=== PATIENT | female | born 1980 | race Caucasian/White ===

== ENCOUNTER → 2020-04-26 | Outpatient (CLI) | payer OTHER ==
[~2020-04-26] MED LIST: ZOFRAN4 MG PO
== END ==
LOC: HEART 5 15:51
DX: R06.02 Shortness of breath (principal); Z86.16 Personal history of COVID-19; F17.210 Nicotine dependence, cigarettes, uncomplicated
CPT/HCPCS: 94010

== ENCOUNTER 2021-10-27 19:00 | Emergency (ER) | payer OTHER ==
[2021-10-27 20:57] LABS: HEMOGLOBIN 15.9 gm/dl (12.3-15.3); RED BLOOD COUNT 5.48 M/UL (4.00-5.10); WHITE BLOOD COUNT 8.3 K/UL (4.5-11.0)
[2021-10-27 21:17] LABS: BUN/CREATININE RATIO 32 (0-10)
== END 2021-10-28 01:49 | disposition left against medical advice (07) ==
LOC: ER1 19:00
PROVIDERS: Emergency Medicine
DX: R10.9 Unspecified abdominal pain (principal)
CPT/HCPCS: 80053; 81001; 83690; 84703; 85025; 99281